=== PATIENT | female | born 1955 | race African-American/Black ===

== ENCOUNTER 2023-02-24 10:47 | Day surgery (SDC) | payer OTHER ==
[2023-02-24 12:42] VITALS: TEMP 98.5
--- NOTE | 2023-02-24 13:03 | OP ---
Date of Procedure: 02/24/2023 Surgeon: AMINAH VAUGHAN Procedure Performed: Transesophageal echocardiogram. Indication: Aortic valve mass. Description Of Procedure: After risks, benefits, and alternatives were explained, patient agreed to procedure and signed informed consent. After the appropriate time-out, propofol was administered by the Anesthesia and then DICK probe was inserted. DICK was performed without difficulties and probe was removed. The patient sent to Recovery in stable condition. SR/MODL Voice ID: [id number] Report ID: [id number]
[2023-02-24 13:04] VITALS: BP 154/75; O2SAT 100
--- NOTE | 2023-02-25 07:37 | TEE ---
TRANSESOPHAGEAL ECHOCARDIOGRAM REPORT CARDIOLOGY DEPARTMENT DATE OF STUDY: 02/24/23 HEIGHT: 5'5" WEIGHT: 229 DIAGNOSIS: BENIGN NEOPLASM PROGRAM ADMINISTRATOR COMMENTS: CARDIAC HISTORY: CATHERIZATION: SURGERY: PROSTHETIC VALVE: PACEMAKER: 2 DIMENSIONAL ASSESSMENT: RIGHT ATRIUM: LEFT ATRIUM: RIGHT VENTRICLE: LEFT VENTRICLE: TRICUSPID VALVE: MITRAL VALVE: PULMONIC VALVE: AORTIC VALVE: PERICARDIAL EFFUSION: AORTIC ROOT: EJECTION FRACTION: 55-60 % LEFT VENTRICULAR WALL MOTION: DOPPLER/COLOR FLOW: COMMENTS: 1. TRANSESOPHAGEAL ECHOCARDIOGRAM PROBE INSERTED WITHOUT DIFFICULTY. 2. 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 3. MILD MITRAL REGURGITATION 4. NORMAL LEFT VENTRICULAR EJECTION FRACTION 55-60% 5. MODERATE TRICUSPID REGURGITATION TECHNOLOGIST: DR. VAUGHAN/ LUBNA ROTHMAN RCS
== END 2023-02-24 13:10 | disposition home or self-care (01) ==
LOC: EKG 10:47
PROVIDERS: ATTEND Internal Medicine
DX: D15.1 Benign neoplasm of heart (principal); I51.7 Cardiomegaly; I73.9 Peripheral vascular disease, unspecified; R06.02 Shortness of breath; I10 Essential (primary) hypertension; E11.9 Type 2 diabetes mellitus without complications; E78.5 Hyperlipidemia, unspecified
CPT/HCPCS: 82947; 93312